=== PATIENT | male | born 1970 | race Caucasian/White ===

== ENCOUNTER 2016-12-28 04:22 | Inpatient (IN) | payer SELFPAY ==
[2016-12-28] VITALS (19 sets, daily range): BP systolic 116–154; BP diastolic 59–83; PULSE 56–99; RESP 16–31; TEMP 98.1–98.7; O2SAT 95–100
[~2016-12-28] VITALS: Ht 185.4 cm; Wt 77.1 kg
[2016-12-28] MEDS ORDERED: ALBU1.25 NEB (04:26)
[2016-12-28] MEDS ORDERED: VENTAER INH (04:26)
[2016-12-28] MEDS ORDERED: SODIUM CHLORIDE 0.9% FLUSH 10 ML FLUSH IVF PRN (04:45)
[2016-12-28 04:46] LABS: AUTOMATED NEUTROPHIL # 9.4 TH/MM3 (1.8-7.7); BASOPHIL # 0.1 TH/MM3 (0-0.2); BASOPHIL % 0.6 % (0.0-2.0); EOSINOPHIL # 1.5 TH/MM3 (0-0.4); EOSINOPHIL % 9.9 % (0.0-4.0); HEMATOCRIT 43.5 % (39.0-51.0); HEMO FLAGS DIFF FINAL; LYMPH % 18.8 % (9.0-44.0); LYMPHOCYTE # 2.8 TH/MM3 (1.0-4.8); MEAN CELL VOLUME 94.7 FL (80.0-100.0); MEAN CORPUSCULAR HEMOGLOBIN 31.5 PG (27.0-34.0); MEAN CORPUSCULAR HGB CONC 33.3 % (32.0-36.0); NEUT % 62.7 % (16.0-70.0); PLATELET COUNT 217 TH/MM3 (150-450); RED BLOOD COUNT 4.59 MIL/MM3 (4.50-5.90); RED CELL DISTRIBUTION WIDTH 12.9 % (11.6-17.2); WHITE BLOOD COUNT 15.1 TH/MM3 (4.0-11.0)
--- NOTE | 2016-12-28 04:46 | PD ---
HPI Chief Complaint: Respiratory Distress Time Seen by Provider: 04:32 Travel History International Travel<30 days: No Contact w/Intl Traveler<30days: No Traveled to known affect area: No History of Present Illness HPI 46-year-old male presents with one-week history of shortness of breath and wheezing. He received Solu-Medrol and 3 breathing treatments in route as well as BiPAP. He states that he's feeling much better with that treatment. He denies prior CPAP treatment before. He denies other concurrent complaints. History is limited through BiPAP mask PFSH Past Medical History Anxiety: Yes Diminished Hearing: Yes ([facility]) Musculoskeletal: Yes (CHRONIC NECK AND BACK PAIN) ?: Not Past Surgical History Tonsillectomy: Yes Social History Alcohol Use: Yes () Tobacco Use: Yes (STAT[employer] HE QUIT ON WEDNESDAY ) Substance Use: No Allergies-Medications (Allergen,Severity, Reaction): Coded Allergies: Tramadol (Unverified Adverse Reaction, Mild, NAUSEA, CRAMPS, 12/28/16) Reported Meds & Prescriptions Reported Meds & Active Scripts Active Reported Ventolin Hfa 18 GM Inh (Albuterol Sulfate) 90 Mcg/Act Aer 2 Puff INH Q4-6H PRN Albuterol Neb (Albuterol Sulfate) 1.25 Mg/3 Ml Neb 1.25 Mg NEB Q6HR NEB PRN Review of Systems ROS Limitations: Other: (BiPAP) Except as stated in HPI: all other systems reviewed are Neg Physical Exam Exam Limitations: Other: (BiPAP) Narrative GENERAL: Well-nourished, well-developed patient. SKIN: Warm and dry. HEAD: Normocephalic and atraumatic. EYES: No injection or drainage. ENT: No nasal drainage noted. NECK: Supple, trachea midline. CARDIOVASCULAR: Regular rate and rhythm RESPIRATORY: Expiratory wheezing bilaterally. No accessory muscle use. EXTREMITIES: No edema. NEUROLOGICAL: Awake and alert. Moves all extremities. Normal speech. Data Data Last Documented VS Vital Signs Date Time Temp Pulse Resp B/P Pulse Ox O2 Delivery O2 Flow Rate FiO2 12/28/16 05:16 56 26 126/60 100 BiPAP 12/28/16 04:56 35 12/28/16 04:26 98.2 Orders Complete Blood Count With Diff (12/28/16 04:32) Comprehensive Metabolic Panel (12/28/16 04:32) B-Type Natriuretic Peptide (12/28/16 04:32) Act Partial Throm Time (Ptt) (12/28/16 04:32) Prothrombin Time / Inr (Pt) (12/28/16 04:32) Magnesium (Mg) (12/28/16 04:32) Ckmb (Isoenzyme) Profile (12/28/16 04:32) Troponin I (12/28/16 04:32) Influenzae A/B Antigen (12/28/16 04:32) Iv Access Insert/Monitor (12/28/16 04:32) Electrocardiogram (12/28/16 04:32) Ecg Monitoring (12/28/16 04:32) Oximetry (12/28/16 04:32) Oxygen Administration (12/28/16 04:32) Chest, Single Ap (12/28/16 04:32) Sodium Chloride 0.9% Flush (Ns Flush) (12/28/16 04:45) Albuterol-Ipratropium Neb (Duoneb Neb) (12/28/16 04:45) CKMB (12/28/16 04:40) CKMB% (12/28/16 04:40) Arterial Blood Gas (Abg) (12/28/16 ) Admit Order (Ed Use Only) (12/28/16 05:38) Labs Laboratory Tests Test 12/28/16 12/28/16 04:40 05:18 White Blood Count 15.1 TH/MM3 Red Blood Count 4.59 MIL/MM3 Hemoglobin 14.5 GM/DL Hematocrit 43.5 % Mean Corpuscular Volume 94.7 FL Mean Corpuscular Hemoglobin 31.5 PG Mean Corpuscular Hemoglobin 33.3 % Concent Red Cell Distribution Width 12.9 % Platelet Count 217 TH/MM3 Mean Platelet Volume 7.3 FL Neutrophils (%) (Auto) 62.7 % Lymphocytes (%) (Auto) 18.8 % Monocytes (%) (Auto) 8.0 % Eosinophils (%) (Auto) 9.9 % Basophils (%) (Auto) 0.6 % Neutrophils # (Auto) 9.4 TH/MM3 Lymphocytes # (Auto) 2.8 TH/MM3 Monocytes # (Auto) 1.2 TH/MM3 Eosinophils # (Auto) 1.5 TH/MM3 Basophils # (Auto) 0.1 TH/MM3 CBC Comment DIFF FINAL Differential Comment Prothrombin Time 10.4 SEC Prothromb Time International 0.9 RATIO Ratio Activated Partial 25.0 SEC Thromboplast Time Sodium Level 140 MEQ/L Potassium Level 3.7 MEQ/L Chloride Level 100 MEQ/L Carbon Dioxide Level 35.5 MEQ/L Anion Gap 5 MEQ/L Blood Urea Nitrogen 9 MG/DL Creatinine 0.75 MG/DL Estimat Glomerular Filtration 112 ML/MIN Rate Random Glucose 134 MG/DL Calcium Level 8.7 MG/DL Magnesium Level 2.0 MG/DL Total Bilirubin 0.4 MG/DL Aspartate Amino Transf 83 U/L (AST/SGOT) Alanine Aminotransferase 66 U/L (ALT/SGPT) Alkaline Phosphatase 142 U/L Total Creatine Kinase 277 U/L Creatine Kinase MB 8.8 NG/ML Troponin I 0.07 NG/ML B-Type Natriuretic Peptide 119 PG/ML Total Protein 7.5 GM/DL Albumin 3.5 GM/DL Blood Gas Puncture Site RT RADIAL Blood Gas Patient Temperature 98.6 Blood Gas HCO3 30 mmol/L Blood Gas Base Excess 4.5 mmol/L Blood Gas Oxygen Saturation 97 % Arterial Blood pH 7.35 Arterial Blood Partial 56 mmHg Pressure CO2 Arterial Blood Partial 104 mmHG Pressure O2 Arterial Blood Oxygen Content 19.2 Vol % Arterial Blood 1.1 % Carboxyhemoglobin Arterial Blood Methemoglobin 0.4 % Blood Gas Hemoglobin 14.0 G/DL Oxygen Delivery Device Y Blood Gas Ventilator Setting BIPAP/IPAP15/EPAP5 Blood Gas Inspired Oxygen 35 % MDM Medical Decision Making Medical Screen Exam Complete: Yes Emergency Medical Condition: Yes Medical Record Reviewed: Yes (past history confirmed) Interpretation(s) EKG is sinus rhythm without STEMI criteria CBC & BMP Diagram 12/28/16 04:40 cxr no acute ABG shows elevated PCO2 of 55 with elevated bicarbonate of 29 to compensate with pH of 7.35 without prior for comparison Differential Diagnosis COPD exacerbation, pneumonia, pneumothorax, anemia, renal failure, URI Narrative Course Will check blood work, chest x-ray, influenza and dose with DuoNeb's and reeval ed workup with copd exacerbation, abg stable on current bipap settings, will admit for further care Critical Care Narrative Aggregate critical care time was 31 minutes. Time to perform other separately billable procedures was not included in the critical care time. My time did not include minutes spent treating any other patients simultaneously or on activities that did not directly contribute to the patient's treatment. The services I provided to this patient were to treat and/or prevent clinically significant deterioration that could result in: Respiratory failure I provided critical care services requiring my management, as noted below: Chart data review, documentation time, medication orders and management, vital sign assessments/reviewing monitor data, ordering and reviewing lab tests, ordering and interpreting/reviewing x-rays and diagnostic studies, care of the patient and discussion of the patient with the admitting physicians. Physician Communication Physician Communication dr og requests full admit Diagnosis Primary Impression: COPD exacerbation Admitting Information Admitting Physician Requests: Admit Courtney Toledo MD December 28, 2016 04:46 Courtney Toledo MD December 28, 2016 04:46
[2016-12-28] MEDS: RESP: ALBUTEROL 2.5 MG/IPRATROPIUM 0.5 MG NEB (SCH) INH (04:47)
[2016-12-28 04:57] LABS: INTERNATIONAL NORMALIZED RATIO 0.9 RATIO; PROTHROMBIN TIME - PATIENT 10.4 SEC (9.8-11.6)
[2016-12-28 05:06] LABS: ANION GAP 5 MEQ/L (5-15); BICARBONATE 35.5 MEQ/L (21.0-32.0); BLOOD UREA NITROGEN 9 MG/DL (7-18); CHLORIDE 100 MEQ/L (98-107); GLOMERULAR FILTRATION RATE 112 ML/MIN (>89); POTASSIUM 3.7 MEQ/L (3.5-5.1); SODIUM (NA) 140 MEQ/L (136-145)
[2016-12-28 05:11] LABS: ALKALINE PHOSPHATASE 142 U/L (45-117); ALT (GPT) 66 U/L (12-78); AST (GOT) 83 U/L (15-37); CREATINE KINASE 277 U/L (39-308); TOTAL BILIRUBIN ADULT 0.4 MG/DL (0.2-1.0)
[2016-12-28 05:25] LABS: CKMB 8.8 NG/ML (0.5-3.6)
[2016-12-28 05:28] LABS: BLOOD GAS BASE EXCESS 4.5 mmol/L (-2-2); BLOOD GAS CARBOXYHEMOGLOBIN 1.1 % (0-4); BLOOD GAS HCO3 30 mmol/L (22-26); BLOOD GAS METHEMOGLOBIN 0.4 % (0-2); BLOOD GAS O2 HGB SATURATION 97 % (90-100); BLOOD GAS OXYGEN CONTENT 19.2 Vol % (12.0-20.0); BLOOD GAS PCO2 56 mmHg (38-42); BLOOD GAS PO2 104 mmHG (61-120); TEMP CORR TO 98.6
[2016-12-28 05:29] LABS: CRITICAL VALUE YES; OXYGEN DEVICE Y; VENT SETTINGS BIPAP/IPAP15/EPAP5
[2016-12-28 05:30] LABS: DRAW SITE RT RADIAL; FIO2 35 %; NUMBER OF ARTERIAL PUNCTURES 1; STAT YES; ULNAR PULSE PRESENT
[2016-12-28] MEDS ORDERED: ACETAMINOPHEN 325 MG TAB PO PRN (05:45)
[2016-12-28] MEDS ORDERED: ONDANSETRON HCL 4 MG/2 ML VIAL IVP PRN (05:45)
[2016-12-28] MEDS ORDERED: BISACODYL 10 MG SUPP RECTAL PRN (05:45)
--- NOTE | 2016-12-28 05:48 | RADRPT ---
EXAM DATE/TIME: 12/28/2016 04:56 [place] COMPARISON: CHEST SINGLE AP, May 01, 2014, 20:00. INDICATIONS : Short of breath MEDICAL HISTORY : None. SURGICAL HISTORY : None. ENCOUNTER: Initial ACUITY: 1 day PAIN SCORE: 0/10 LOCATION: Bilateral chest FINDINGS: The lungs are clear without infiltrate, nodule, or mass. There is no appreciable pleural effusion fo r technique. Heart and mediastinum are unremarkable. CONCLUSION: No acute cardiopulmonary disease. Fabricio May MD on December 28, 2016 at 5:47 Board Certified Radiologist. This report was verified electronically.
[2016-12-28] MEDS: LEVOFLOXACIN 750 MG PREMIX INJ 150 ML IV SCH (06:34)
[2016-12-28] MEDS: methylPREDNISolone SOD SUCC 40 MG/1 ML VIAL IV PUSH SCH ×4 (06:34→22:40)
[2016-12-28] MEDS: RESP: ALBUTEROL 2.5 MG/IPRATROPIUM 0.5 MG NEB (SCH) NEB ×4 (07:26→19:59)
--- NOTE | 2016-12-28 08:14 | HHI.HP ---
[facility] Service [facility] Primary Care Physician Unknown Admission Diagnosis copd exacerbation Diagnoses: (1) COPD exacerbation (2) Acute respiratory failure (3) Leukocytosis (4) Elevated troponin I level (5) Sepsis Chief Complaint: Difficulty breathing; wheezing Travel History International Travel<30 Days: No Contact w/Intl Traveler <30 Da: No Traveled to Known Affected Are: No Sepsis Criteria SIRS Criteria (2 or more): RR > 20 or PaCO2 < 32, WBC > 56415, < 4000 or > 10 % bands Sepsis Criteria (SIRS+source): Infect source susp/known Criteria Outcome: Meets sepsis criteria History of Present Illness The patient is a 46-year-old male who presented to the ER complaining of worsening shortness of breath and wheezing. He states that his symptoms have worsened significantly over the past week. He received Solu-Medrol and 3 nebulizer treatments in route to the hospital. He was also placed on BiPAP. He is feeling better after receiving those treatments, but still feels short of breath and still has significant wheezing. He denies chest pain. Does report headache. No nausea, vomiting, diarrhea, constipation. Review of Systems Constitutional: DENIES: Fever, Chills, Night Sweats Eyes: DENIES: Blurred vision, Vision loss Ears, nose, mouth, throat: DENIES: Hearing loss Respiratory: COMPLAINS OF: Cough, Wheezing, Shortness of breath, DENIES: Sputum production Cardiovascular: COMPLAINS OF: Dyspnea on Exertion, DENIES: Chest pain, Palpitations, Lower Extremity Edema Gastrointestinal: DENIES: Abdominal pain, Constipation, Diarrhea, Nausea, Vomiting Genitourinary: DENIES: Urinary frequency, Urinary incontinence, Urgency, Hematuria, Dysuria, Nocturia Musculoskeletal: DENIES: Joint pain, Muscle aches Integumentary: DENIES: Pruritus, Rash Hematologic/lymphatic: DENIES: Bruising Neurologic: COMPLAINS OF: Headache Past Family Social History Past Medical History COPD Anxiety Past Surgical History Tonsillectomy Reported Medications Ventolin Hfa 18 GM Inh (Albuterol Sulfate) 90 Mcg/Act Aer 2 Puff INH Q4-6H PRN Albuterol Neb (Albuterol Sulfate) 1.25 Mg/3 Ml Neb 1.25 Mg NEB Q6HR NEB PRN Allergies: Coded Allergies: Tramadol (Unverified Adverse Reaction, Mild, NAUSEA, CRAMPS, 12/28/16) Family History Heart disease Social History The patient states that he quit smoking 10 days ago. He had smoked 1.5 packs per day for "many years". Reports occasional alcohol use. Denies illicit drug use. Physical Exam Vital Signs Vital Signs Date Time Temp Pulse Resp B/P Pulse Ox O2 Delivery O2 Flow Rate FiO2 12/28/16 07:47 60 16 116/62 100 BiPAP 5 40 12/28/16 07:26 100 35 12/28/16 05:16 56 26 126/60 100 BiPAP 12/28/16 04:56 100 High Flow Nasal Cannula 35 12/28/16 04:33 100 BiPAP 12/28/16 04:30 30 100 BiPAP 12/28/16 04:26 98.2 86 30 141/83 100 12/28/16 04:18 100 35 Physical Exam GENERAL: Well-nourished, well-developed male in no acute distress. On BiPAP. HEENT: Normocephalic, atraumatic. Pupils equal, round and reactive. Extraocular movements intact. No scleral icterus. No injection or drainage. Oropharynx is clear. Mucous membranes are moist. CARDIOVASCULAR: Regular rate and rhythm without murmurs, gallops, or rubs. RESPIRATORY: Diffuse wheeze. GASTROINTESTINAL: Abdomen soft, non-tender, nondistended. EXTREMITIES: No lower extremity edema. No calf tenderness. PSYCH: Alert and oriented x 3. Laboratory Laboratory Tests Test 12/28/16 12/28/16 04:40 05:18 White Blood Count 15.1 Red Blood Count 4.59 Hemoglobin 14.5 Hematocrit 43.5 Mean Corpuscular Volume 94.7 Mean Corpuscular Hemoglobin 31.5 Mean Corpuscular Hemoglobin 33.3 Concent Red Cell Distribution Width 12.9 Platelet Count 217 Mean Platelet Volume 7.3 Neutrophils (%) (Auto) 62.7 Lymphocytes (%) (Auto) 18.8 Monocytes (%) (Auto) 8.0 Eosinophils (%) (Auto) 9.9 Basophils (%) (Auto) 0.6 Neutrophils # (Auto) 9.4 Lymphocytes # (Auto) 2.8 Monocytes # (Auto) 1.2 Eosinophils # (Auto) 1.5 Basophils # (Auto) 0.1 CBC Comment DIFF FINAL Differential Comment Prothrombin Time 10.4 Prothromb Time International 0.9 Ratio Activated Partial 25.0 Thromboplast Time Sodium Level 140 Potassium Level 3.7 Chloride Level 100 Carbon Dioxide Level 35.5 Anion Gap 5 Blood Urea Nitrogen 9 Creatinine 0.75 Estimat Glomerular Filtration 112 Rate Random Glucose 134 Calcium Level 8.7 Magnesium Level 2.0 Total Bilirubin 0.4 Aspartate Amino Transf 83 (AST/SGOT) Alanine Aminotransferase 66 (ALT/SGPT) Alkaline Phosphatase 142 Total Creatine Kinase 277 Creatine Kinase MB 8.8 Troponin I 0.07 B-Type Natriuretic Peptide 119 Total Protein 7.5 Albumin 3.5 Blood Gas Puncture Site RT RADIAL Blood Gas Patient Temperature 98.6 Blood Gas HCO3 30 Blood Gas Base Excess 4.5 Blood Gas Oxygen Saturation 97 Arterial Blood pH 7.35 Arterial Blood Partial 56 Pressure CO2 Arterial Blood Partial 104 Pressure O2 Arterial Blood Oxygen Content 19.2 Arterial Blood 1.1 Carboxyhemoglobin Arterial Blood Methemoglobin 0.4 Blood Gas Hemoglobin 14.0 Oxygen Delivery Device Y Blood Gas Ventilator Setting BIPAP/IPAP15/EPAP5 Blood Gas Inspired Oxygen 35 Date/Time Procedure Status Source Growth 12/28/16 00:40 Influenza Types A,B Antigen (KRISTEN) - Final Complete Nasal Aspirate NEGATIVE FOR FLU A AND B ANTIGEN.... Result Diagram: 12/28/16 0440 12/28/16 044 Imaging Last Impressions Chest X-Ray 12/28/16 0432 Signed Impressions: Service Date/Time: Wednesday, December 28, 2016 04:56 - CONCLUSION: No acute cardiopulmonary disease. Fabricio May MD Assessment and Plan Assessment and Plan 1. COPD exacerbation: Continue steroids, bronchodilators, supplemental oxygen, antibiotics. 2. Acute respiratory failure secondary to above: Requiring BiPAP. Consult pulmonology. 3. DVT prophylaxis: Heparin. Code Status Full code Rosas Wheeler MD December 28, 2016 08:14
[2016-12-28] MEDS ORDERED: CHLORHEXIDINE GLUCONATE 2 % 1 PACK (2 CLOTHS)(extra cloths) TOPICAL PRN (09:30)
[2016-12-28] MEDS: BUDESONIDE-FORMOTEROL 160/4.5 MCG INHALER INH SCH ×2 (09:39→21:04)
[2016-12-28] MEDS: SODIUM CHLORIDE 0.9% FLUSH 10 ML FLUSH IV FLUSH PRN (09:39)
[2016-12-28] MEDS: guaiFENesin E.R. 600 MG TAB PO SCH ×2 (09:39→21:04)
[2016-12-28] MEDS: SODIUM CHLORIDE 0.9% FLUSH 10 ML FLUSH IV FLUSH SCH ×2 (09:39→21:04)
[2016-12-28 13:36] LABS: CREATINE KINASE 215 U/L (39-308)
[2016-12-28 13:48] LABS: CKMB 7.3 NG/ML (0.5-3.6)
[2016-12-28] MEDS: ASPIRIN EC 325 MG TABEC PO SCH (14:00)
[2016-12-28] MEDS ORDERED: NITROGLYCERIN 0.4 MG SL 25 TABS/BTL SL PRN (14:00)
[2016-12-28] MEDS: HEPARIN SODIUM - SQ 10,000 UNITS/ML VIAL SQ SCH ×2 (14:00→21:04)
--- NOTE | 2016-12-28 14:55 | PD.CONS ---
HPI Service cardiology Consult Requested By Reason for Consult elevated troponin Primary Care Physician Unknown History of Present Illness 46 yo WM with no prior cardiac history admitted for COPD exacerbation. Patient states he quit smoking approx 10 days ago and began to have a dry, hacky cough that has progressively worsened. This morning he became acutely short of breath and came to ED and required bipap. troponin and CK-MB elevated. ECG sinus rhythm , CXR clear. He continues to have persistent dry cough and is on venturi mask. He denies chest pain. (Jasmyne Hidalgo) Review of Systems Consitutional: DENIES: Fatigue, Fever, Chills, Weight gain, Weight loss Respiratory: COMPLAINS OF: See HPI Cardiovascular: DENIES: Chest pain, Palpitations, Syncope, Tachycardia Gastrointestinal: DENIES: Nausea, Vomiting, Change in bowel habits, Reflux, Bloody stools, Melena (Jasmyne Hidalgo) Past Family Social History Allergies: Coded Allergies: Tramadol (Unverified Adverse Reaction, Mild, NAUSEA, CRAMPS, 12/28/16) Past Medical History Past Medical History COPD Anxiety Past Surgical History Past Surgical History Tonsillectomy Reported Medications Reported Meds & Active Scripts Active Reported Ventolin Hfa 18 GM Inh (Albuterol Sulfate) 90 Mcg/Act Aer 2 Puff INH Q4-6H PRN Albuterol Neb (Albuterol Sulfate) 1.25 Mg/3 Ml Neb 1.25 Mg NEB Q6HR NEB PRN Active Ordered Medications Current Medications Medications (Trade) Dose Ordered Sig/Codey Route Start Time Stop Time Status Last Admin (NS Flush) 2 ml UNSCH PRN IVF 12/28/16 04:45 12/28/16 09:39 (SoluMEDROL INJ) 40 mg Q6HR IV PUSH 12/28/16 06:00 12/28/16 11:42 (Mucinex Er) 600 mg BID PO 12/28/16 09:00 12/28/16 09:39 Budesonide/ Formoterol Fumarate 2 puff 2 puff Q12HR INH 12/28/16 09:00 12/28/16 09:39 (Levaquin 750 Mg Premix Inj) 150 ml @ 100 mls/hr Q24H IV 12/28/16 06:00 12/28/16 06:34 (NS Flush) 2 ml UNSCH PRN IV FLUSH 12/28/16 05:45 12/28/16 09:39 (NS Flush) 2 ml BID IV FLUSH 12/28/16 09:00 12/28/16 09:39 (Zofran Inj) 4 mg Q6H PRN IVP 12/28/16 05:45 (Dulcolax Supp) 10 mg DAILY PRN RECTAL 12/28/16 05:45 (Tylenol) 650 mg Q6H PRN PO 12/28/16 05:45 (Rulo 5-325 Mg) 1 tab Q4H PRN PO 12/28/16 05:45 (Rulo 10-325 Mg) 1 tab Q4H PRN PO 12/28/16 05:45 (Heparin Inj) 5,000 units Q8HR SQ 12/28/16 14:00 12/28/16 14:00 Miscellaneous Information Patient in critical care unit? Ass... Q361D .XX 12/28/16 09:30 12/28/16 09:30 (Chlorhexidine 2% Cloth) 3 pack DAILY@04 TOPICAL 12/29/16 04:00 01/02/17 04:01 (Chlorhexidine 2% Cloth) 3 pack UNSCH PRN TOPICAL 12/28/16 09:30 01/02/17 09:24 (Pneumovax-23 Inj) 25 mcg ONCE ONCE IM 12/29/16 10:00 12/29/16 10:01 (Ecotrin Ec) 325 mg DAILY PO 12/28/16 14:00 (Nitrostat Sl) 0.4 mg Q5M PRN SL 12/28/16 14:00 Family History Family History Heart disease . Social History The patient states that he quit smoking 10 days ago. He had smoked 1.5 packs per day for "many years". Reports occasional alcohol use. Denies illicit drug use. (Jasmyne Hidalgo) Physical Exam Vital Signs Vital Signs Date Time Temp Pulse Resp B/P Pulse Ox O2 Delivery O2 Flow Rate FiO2 12/28/16 10:00 99 12/28/16 09:17 97 Venturi Mask 50 12/28/16 07:47 60 16 116/62 100 BiPAP 5 40 12/28/16 07:26 100 35 12/28/16 05:16 56 26 126/60 100 BiPAP 12/28/16 04:56 100 High Flow Nasal Cannula 35 12/28/16 04:33 100 BiPAP 12/28/16 04:30 30 100 BiPAP 12/28/16 04:26 98.2 86 30 141/83 100 12/28/16 04:18 100 35 Physical Exam GENERAL: SKIN: Warm and dry. HEAD: Atraumatic. Normocephalic. EYES: Pupils equal and round. ENT: No nasal bleeding or discharge. Mucous membranes pink and moist. NECK: Trachea midline. No JVD. CARDIOVASCULAR: Regular rate and rhythm. No murmurs. RESPIRATORY: +bilateral expiratory wheezes GASTROINTESTINAL: Abdomen soft, non-tender, nondistended. MUSCULOSKELETAL: Extremities without clubbing, cyanosis, or edema. No obvious deformities. NEUROLOGICAL: Awake and alert. No obvious cranial nerve deficits. Normal speech. PSYCHIATRIC: Appropriate mood and affect; insight and judgment normal. Laboratory Laboratory Tests Test 12/28/16 12/28/16 12/28/16 12/28/16 04:40 05:18 09:15 12:20 White Blood Count 15.1 Red Blood Count 4.59 Hemoglobin 14.5 Hematocrit 43.5 Mean Corpuscular Volume 94.7 Mean Corpuscular Hemoglobin 31.5 Mean Corpuscular Hemoglobin 33.3 Concent Red Cell Distribution Width 12.9 Platelet Count 217 Mean Platelet Volume 7.3 Neutrophils (%) (Auto) 62.7 Lymphocytes (%) (Auto) 18.8 Monocytes (%) (Auto) 8.0 Eosinophils (%) (Auto) 9.9 Basophils (%) (Auto) 0.6 Neutrophils # (Auto) 9.4 Lymphocytes # (Auto) 2.8 Monocytes # (Auto) 1.2 Eosinophils # (Auto) 1.5 Basophils # (Auto) 0.1 CBC Comment DIFF FINAL Differential Comment Prothrombin Time 10.4 Prothromb Time International 0.9 Ratio Activated Partial 25.0 Thromboplast Time Sodium Level 140 Potassium Level 3.7 Chloride Level 100 Carbon Dioxide Level 35.5 Anion Gap 5 Blood Urea Nitrogen 9 Creatinine 0.75 Estimat Glomerular Filtration 112 Rate Random Glucose 134 Calcium Level 8.7 Magnesium Level 2.0 Total Bilirubin 0.4 Aspartate Amino Transf 83 (AST/SGOT) Alanine Aminotransferase 66 (ALT/SGPT) Alkaline Phosphatase 142 Total Creatine Kinase 277 215 Creatine Kinase MB 8.8 7.3 Troponin I 0.07 0.16 B-Type Natriuretic Peptide 119 Total Protein 7.5 Albumin 3.5 Blood Gas Puncture Site RT RADIAL Blood Gas Patient Temperature 98.6 Blood Gas HCO3 30 Blood Gas Base Excess 4.5 Blood Gas Oxygen Saturation 97 Arterial Blood pH 7.35 Arterial Blood Partial 56 Pressure CO2 Arterial Blood Partial 104 Pressure O2 Arterial Blood Oxygen Content 19.2 Arterial Blood 1.1 Carboxyhemoglobin Arterial Blood Methemoglobin 0.4 Blood Gas Hemoglobin 14.0 Oxygen Delivery Device Y Blood Gas Ventilator Setting BIPAP/IPAP15/EPAP5 Blood Gas Inspired Oxygen 35 Nasal Screen MRSA (PCR) MRSA NOT DETECTED Date/Time Procedure Status Source Growth 12/28/16 00:40 Influenza Types A,B Antigen (KRISTEN) - Final Complete Nasal Aspirate NEGATIVE FOR FLU A AND B ANTIGEN.... (Jasmyne Hidalgo) Result Diagram: 12/28/1643912/28/16439 Imaging Last Impressions Chest X-Ray 12/28/16 0432 Signed Impressions: Service Date/Time: Wednesday, December 28, 2016 04:56 - CONCLUSION: No acute cardiopulmonary disease. Fabricio May MD (Jasmyne Hidalgo) Assessment and Plan Problem List: (1) Elevated troponin I level (2) COPD exacerbation Assessment and Plan 46 yo WM with no prior cardiac history presents to ED today with progressive SOB x 2 weeks. Required bipap. Found to have troponin elevation. Troponin elevation- will obtain lexiscan to evaluate for ischemia. (Jasmyne Hidalgo) Assessment and Plan elevated troponin is likely demand mediated. plan for lexiscan in am to rule out ischemic etiology (Jeremie Roque MD) Jasmyne Hidalgo December 28, 2016 14:55 Jeremie Roque MD December 28, 2016 15:39
[2016-12-28] MEDS: BENZONATATE 100 MG CAP PO PRN ×2 (14:58→22:40)
[2016-12-28] MEDS: ACETAMINOPHEN/HYDROcodone 325 MG/5 MG TAB PO PRN (15:02)
[2016-12-28] MEDS: ACETAMINOPHEN/HYDROcodone 325 MG/10 MG TAB PO PRN ×2 (17:23→22:40)
[2016-12-28 21:15] LABS: CREATINE KINASE 197 U/L (39-308)
[2016-12-28 21:31] LABS: CKMB 6.2 NG/ML (0.5-3.6)
--- NOTE | 2016-12-28 21:36 | MB ---
cc: AMY REYES M.D. DATE OF CONSULTATION 12/28/2016 REASON FOR CONSULTATION COPD exacerbation. HISTORY OF PRESENT ILLNESS Mr. Adamson is a 46-year-old male, long-standing smoking history on bronchodilator therapy at home, complaining of increasing shortness of breath. His wheeze is progressively worse, comes to the emergency room with exacerbation of COPD and acute respiratory failure. Initially placed on BiPap therapy somewhat improved. At present on oxygen by nasal cannula, however, he remains with congestion, cough and chest wheeze. PAST MEDICAL HISTORY 1. COPD. 2. Anxiety. SOCIAL HISTORY Long heavy smoking history. Has not smoked for about 10 days. 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 Drinks alcohol socially. Does not use drugs. MEDICATIONS AT HOME Albuterol by nebulizer inhaler. ALLERGIES TRAMADOL. FAMILY HISTORY Noncontributory. REVIEW OF SYSTEMS 12-point review of systems as per HPI and past history otherwise negative. PHYSICAL EXAMINATION VITAL SIGNS: On exam temperature 98, pulse 80, respiration 30, blood pressure 140/80. HEENT: Exam unremarkable. Eyes without icterus. NECK: Without adenopathy or thyroid enlargement. Central trachea. CHEST: Scattered rhonchi, wheeze bilaterally. CARDIOVASCULAR: PMI distant. S1-S2 audible. No murmur. No rub. ABDOMEN: Lax. Audible bowel sounds. EXTREMITIES: No clubbing, cyanosis or edema. LABORATORY DATA White count 15,000, hemoglobin 14, hematocrit 43, platelets are 217,000. Sodium 140, potassium 3.7, BUN 9, creatinine 0.7. IMAGING Chest x-ray no acute disease. IMPRESSION 1. COPD exacerbation. 2. Hypoxic respiratory failure. PLAN Continue oxygen therapy and bronchodilator therapy. Change to oral therapy when possible. We will be happy to follow his care with you. Amy Reyes MD WWW/JAMIE /5:17 PM /9:29 PM
[2016-12-28] MEDS: RESP: ALBUTEROL 2.5 MG/IPRATROPIUM 0.5 MG NEB (PRN) NEB (23:44)
[2016-12-29] VITALS (17 sets, daily range): BP systolic 89–138; BP diastolic 45–65; PULSE 50–90; RESP 13–23; TEMP 98.1–98.5; O2SAT 92–100
[2016-12-29] MEDS ORDERED: MELATONIN 5 MG TAB PO ONE (00:30)
[2016-12-29] MEDS: RESP: ALBUTEROL 2.5 MG/IPRATROPIUM 0.5 MG NEB (PRN) NEB (03:02)
[2016-12-29] MEDS: CHLORHEXIDINE GLUCONATE 2 % 1 PACK (2 CLOTHS)(taper/protocol) TOPICAL SCH (04:00)
[2016-12-29 04:36] LABS: AUTOMATED NEUTROPHIL # 13.8 TH/MM3 (1.8-7.7); HEMATOCRIT 39.8 % (39.0-51.0); HEMO FLAGS DIFF FINAL; LYMPH % 3.8 % (9.0-44.0); LYMPHOCYTE # 0.6 TH/MM3 (1.0-4.8); MEAN CELL VOLUME 94.1 FL (80.0-100.0); MEAN CORPUSCULAR HEMOGLOBIN 31.1 PG (27.0-34.0); MEAN CORPUSCULAR HGB CONC 33.1 % (32.0-36.0); MONO % 4.3 % (0.0-8.0); NEUT % 91.9 % (16.0-70.0); PLATELET COUNT 185 TH/MM3 (150-450); RED BLOOD COUNT 4.23 MIL/MM3 (4.50-5.90); RED CELL DISTRIBUTION WIDTH 13.1 % (11.6-17.2)
[2016-12-29 04:58] LABS: ALKALINE PHOSPHATASE 115 U/L (45-117); ALT (GPT) 46 U/L (12-78); ANION GAP 6 MEQ/L (5-15); AST (GOT) 26 U/L (15-37); BICARBONATE 32.3 MEQ/L (21.0-32.0); BLOOD UREA NITROGEN 16 MG/DL (7-18); CHLORIDE 100 MEQ/L (98-107); GLOMERULAR FILTRATION RATE 132 ML/MIN (>89); SODIUM (NA) 138 MEQ/L (136-145); TOTAL BILIRUBIN ADULT 0.3 MG/DL (0.2-1.0)
[2016-12-29] MEDS: LEVOFLOXACIN 750 MG PREMIX INJ 150 ML IV SCH (06:09)
[2016-12-29] MEDS: methylPREDNISolone SOD SUCC 40 MG/1 ML VIAL IV PUSH SCH ×4 (06:10→23:44)
[2016-12-29] MEDS: HEPARIN SODIUM - SQ 10,000 UNITS/ML VIAL SQ SCH ×3 (06:10→21:52)
[2016-12-29] MEDS: BENZONATATE 100 MG CAP PO PRN ×3 (06:17→17:19)
[2016-12-29] MEDS: RESP: ALBUTEROL 2.5 MG/IPRATROPIUM 0.5 MG NEB (SCH) NEB ×4 (06:33→20:11)
[2016-12-29] MEDS: guaiFENesin E.R. 600 MG TAB PO SCH ×2 (07:21→20:02)
[2016-12-29] MEDS: BUDESONIDE-FORMOTEROL 160/4.5 MCG INHALER INH SCH ×2 (07:22→20:02)
[2016-12-29] MEDS: ACETAMINOPHEN/HYDROcodone 325 MG/10 MG TAB PO PRN ×3 (07:22→23:45)
[2016-12-29] MEDS: SODIUM CHLORIDE 0.9% FLUSH 10 ML FLUSH IV FLUSH SCH ×2 (07:22→20:03)
[2016-12-29] MEDS: SODIUM CHLORIDE 0.9% FLUSH 10 ML FLUSH IV FLUSH PRN (07:22)
[2016-12-29] MEDS: ASPIRIN EC 325 MG TABEC PO SCH (07:22)
--- NOTE | 2016-12-29 08:54 | HHI.PR ---
Subjective Remarks Follow up COPD exacerbation, elevated troponin. Patient still with cough, wheeze. He feels better than yesterday. No chest pain. Reports headache that radiates from the back of his neck to the top of his head. Has been present for 1 week and he states that it is improving. He thinks it is from coughing. Objective Vitals Vital Signs Date Time Temp Pulse Resp B/P Pulse Ox O2 Delivery O2 Flow Rate FiO2 12/29/16 06:00 78 12/29/16 04:00 50 12/29/16 04:00 98.5 50 14 103/58 94 12/29/16 02:00 59 12/29/16 00:00 98.3 71 16 136/60 92 12/29/16 00:00 71 12/28/16 22:00 68 12/28/16 21:00 71 12/28/16 20:01 95 Nasal Cannula 3.50 12/28/16 20:00 98.1 79 31 122/59 96 12/28/16 20:00 79 12/28/16 18:00 80 12/28/16 16:00 81 12/28/16 16:00 98.7 81 17 138/69 97 12/28/16 15:00 90 27 154/74 96 12/28/16 14:00 86 26 138/79 98 12/28/16 14:00 86 12/28/16 13:00 72 20 127/59 97 12/28/16 12:00 73 12/28/16 12:00 98.2 73 16 142/63 97 12/28/16 11:00 80 16 128/67 95 12/28/16 10:00 99 12/28/16 09:17 97 Venturi Mask 50 I/O 12/28/16 12/28/16 12/28/16 12/29/16 12/29/16 12/29/16 07:00 15:00 23:00 07:00 15:00 23:00 Intake Total 800 ml 1820 ml 0 ml Output Total 300 ml 1300 ml 400 ml Balance 500 ml 520 ml -400 ml Intake Oral 800 ml 1320 ml 0 ml IV Total 0 ml 0 ml 0 ml Tube Feeding 500 ml Output Urine Total 300 ml 1300 ml 400 ml # Bowel Movements 0 0 0 Result Diagram: 12/29/16 0343 12/29/16 0343 Imaging Last Impressions Chest X-Ray 12/28/16 0432 Signed Impressions: Service Date/Time: Wednesday, December 28, 2016 04:56 - CONCLUSION: No acute cardiopulmonary disease. Fabricio May MD Objective Remarks General: No acute distress. Heart: Regular rate and rhythm. No murmur. Lungs: Diffuse wheeze. Breathing is nonlabored. Abdomen: Soft, nontender, nondistended. Extremities: No lower extremity edema. Psych: Alert and oriented. Procedures None Urinary Catheter: No Vascular Central Line Catheter: No A/P Problem List: (1) COPD exacerbation ICD Code: J44.1 Status: Acute (2) Acute respiratory failure ICD Code: J96.00 Status: Acute (3) Leukocytosis ICD Code: D72.829 Status: Acute (4) Elevated troponin I level ICD Code: R74.8 Status: Acute (5) Sepsis ICD Code: A41.9 Status: Acute Assessment and Plan 1. COPD exacerbation: Continue steroids, bronchodilators, supplemental oxygen, antibiotics. 2. Acute respiratory failure secondary to above: No longer requiring BiPAP. Appreciate pulmonology recommendations. 3. Elevated troponin: Appreciate cardiology recommendations. Nuclear stress test ordered for this morning. 4. DVT prophylaxis: Heparin. Discharge Planning Transfer to medical/surgical floor with telemetry. Rosas Wheeler MD December 29, 2016 08:54
--- NOTE | 2016-12-29 09:10 | HHI.PR ---
Subjective Remarks ALERT\ LESS SOB STILL WITH CONGESTION AND WHEEZING Objective Vital Signs Date Time Temp Pulse Resp B/P Pulse Ox O2 Delivery O2 Flow Rate FiO2 12/29/16 08:00 98.1 56 20 99/48 100 12/29/16 08:00 56 12/29/16 07:00 62 19 114/58 96 12/29/16 06:00 78 12/29/16 04:00 50 12/29/16 04:00 98.5 50 14 103/58 94 12/29/16 02:00 59 12/29/16 00:00 98.3 71 16 136/60 92 12/29/16 00:00 71 12/28/16 22:00 68 12/28/16 21:00 71 12/28/16 20:01 95 Nasal Cannula 3.50 12/28/16 20:00 98.1 79 31 122/59 96 12/28/16 20:00 79 12/28/16 18:00 80 12/28/16 16:00 81 12/28/16 16:00 98.7 81 17 138/69 97 12/28/16 15:00 90 27 154/74 96 12/28/16 14:00 86 26 138/79 98 12/28/16 14:00 86 12/28/16 13:00 72 20 127/59 97 12/28/16 12:00 73 12/28/16 12:00 98.2 73 16 142/63 97 12/28/16 11:00 80 16 128/67 95 12/28/16 10:00 99 12/28/16 09:17 97 Venturi Mask 50 I/O 12/28/16 12/28/16 12/28/16 12/29/16 12/29/16 12/29/16 07:00 15:00 23:00 07:00 15:00 23:00 Intake Total 800 ml 1820 ml 0 ml Output Total 300 ml 1300 ml 400 ml Balance 500 ml 520 ml -400 ml Intake Oral 800 ml 1320 ml 0 ml IV Total 0 ml 0 ml 0 ml Tube Feeding 500 ml Output Urine Total 300 ml 1300 ml 400 ml # Bowel Movements 0 0 0 Result Diagram: 12/29/16 0343 12/29/16 0343 Objective Remarks GENERAL: SKIN: Warm and dry. HEAD: Atraumatic. Normocephalic. EYES: Pupils equal and round. No scleral icterus. No injection or drainage. ENT: No nasal bleeding or discharge. Mucous membranes pink and moist. NECK: Trachea midline. No JVD. CARDIOVASCULAR: Regular rate and rhythm. RESPIRATORY: No accessory muscle use. BILATERAL WHEEZE to auscultation. Breath sounds equal bilaterally. GASTROINTESTINAL: Abdomen soft, non-tender, nondistended. Hepatic and splenic margins not palpable. MUSCULOSKELETAL: Extremities without clubbing, cyanosis, or edema. No obvious deformities. NEUROLOGICAL: Awake and alert. No obvious cranial nerve deficits. Motor grossly within normal limits. Five out of 5 muscle strength in the arms and legs. Normal speech. PSYCHIATRIC: Appropriate mood and affect; insight and judgment normal. Assessment and Plan Assessment and Plan COPD EXACERBATION PLAN O2 NEEDED ANTIBIOTICS BRONCHODILATOR THERAPY INCREASE ACTIVITY Amy Reyes MD December 29, 2016 09:10
[2016-12-29] MEDS ORDERED: INFLUENZA VIRUS VACCINE (QUADRIVALENT) 0.5 ML SYR IM ONE (10:00)
[2016-12-29] MEDS ORDERED: PNEUMOCOCCAL POLYVALENT INJ 25 MCG/0.5 ML SYR IM ONE (10:00)
[2016-12-29] MEDS ORDERED: REGADENOSON INJ 0.4 MG/5 ML SYR ONE (10:13)
--- NOTE | 2016-12-29 11:21 | RADRPT ---
EXAM DATE/TIME: 12/29/2016 09:42 [facility] COMPARISON: No previous studies available for comparison. INDICATIONS : Mid chest pain for one day. Congestive heart failure. DOSE: 26.1 mCi Tc99m Myoview at stress. 8.2 mCi Tc99m Myoview at rest. 0.4 mg Lexiscan STRESS SYMPTOMS: Shortness of breath. EJECTION FRACTION: 58% MEDICAL HISTORY : Chronic obstructive pulmonary disease. Smoking history. SURGICAL HISTORY : Foot surgery. ENCOUNTER: Initial ACUITY: 1 day PAIN SCALE: 3/10 LOCATION: Bilateral chest TECHNIQUE: The patient underwent pharmacologic stress with infusion of prescribed dose. Continuous ECG tracing was monitored during stress. Gated SPECT imaging was performed after stress and conventional SPECT i maging was performed at rest. The examination was performed on a SPECT/CT scanner, both attenuation and non-corrected datasets were reviewed. FINDINGS: DISTRIBUTION: The maximum perfused segment at stress is in the inferior wall. PERFUSION STUDY: The pattern of perfusion at stress is within normal limits. GATED STUDY: There is intact wall motion and thickening without hypokinetic or dyskinetic segments. CONCLUSION: 1. Unremarkable myocardial perfusion scan.8 RISK CATEGORY: Low risk, less than 1% annual mortality Dc Myers MD on December 29, 2016 at 11:12 Board Certified Radiologist. This report was verified electronically.
--- NOTE | 2016-12-29 11:52 | PD.CARD.PN ---
Subjective Subjective Remarks no events Objective Medications Active Medications Aspirin (Ecotrin Ec) 325 mg DAILY PO Last administered on 12/29/16 07:22; Admin Dose 325 MG; Start 12/28/16 at 14:00 Benzonatate (Tessalon) 100 mg TID PRN PO Last administered on 12/29/16 11:24; Admin Dose 100 MG; Start 12/28/16 at 14:45 Chlorhexidine Gluconate (Chlorhexidine 2% Cloth) 3 pack DAILY@04 TOPICAL Last administered on 12/29/16 04:00; Admin Dose 3 PACK; Start 12/29/16 at 04:00; Stop 01/02/17 at 04:01 Heparin Sodium (Porcine) (Heparin Inj) 5,000 units Q8HR SQ Last administered on 12/29/16 06:10; Admin Dose 5,000 UNITS; Start 12/28/16 at 14:00 Influenza Virus Vaccine (Flu (Quadrivalent) Vaccine Inj) 0.5 ml ONCE ONCE IM; Start 12/29/16 at 10:00; Stop 12/29/16 at 10:00; Status DC Melatonin (Melatonin) 5 mg ONCE ONCE PO Last administered on 12/29/16 00:43; Admin Dose 5 MG; Start 12/29/16 at 00:30; Stop 12/29/16 at 00:32; Status DC Nitroglycerin (Nitrostat Sl) 0.4 mg Q5M PRN SL; Start 12/28/16 at 14:00 Pneumococcal Polyvalent Vaccine (Pneumovax-23 Inj) 25 mcg ONCE ONCE IM Last administered on 12/29/16 08:59; Admin Dose 25 MCG; Start 12/29/16 at 10:00; Stop 12/29/16 at 10:01; Status DC Regadenoson (Lexiscan Inj) 0.4 mg STK-MED ONCE .ROUTE Last administered on 10:13; Admin Dose 0.4 MG; Start 12/29/16 at 10:13; Stop 12/29/16 at 10:14; Status DC Vital Signs / I&O Vital Signs Date Time Temp Pulse Resp B/P Pulse Ox O2 Delivery O2 Flow Rate FiO2 12/29/16 11:24 96 12/29/16 08:00 98.1 56 20 99/48 100 12/29/16 08:00 56 12/29/16 07:00 62 19 114/58 96 12/29/16 06:00 78 12/29/16 04:00 50 12/29/16 04:00 98.5 50 14 103/58 94 12/29/16 02:00 59 12/29/16 00:00 98.3 71 16 136/60 92 12/29/16 00:00 71 12/28/16 22:00 68 12/28/16 21:00 71 12/28/16 20:01 95 Nasal Cannula 3.50 12/28/16 20:00 98.1 79 31 122/59 96 12/28/16 20:00 79 12/28/16 18:00 80 12/28/16 16:00 81 12/28/16 16:00 98.7 81 17 138/69 97 12/28/16 15:00 90 27 154/74 96 12/28/16 14:00 86 26 138/79 98 12/28/16 14:00 86 12/28/16 13:00 72 20 127/59 97 12/28/16 12:00 73 12/28/16 12:00 98.2 73 16 142/63 97 I/O 12/28/16 12/28/16 12/28/16 12/29/16 12/29/16 12/29/16 07:00 15:00 23:00 07:00 15:00 23:00 Intake Total 800 ml 1820 ml 0 ml Output Total 300 ml 1300 ml 400 ml Balance 500 ml 520 ml -400 ml Intake Oral 800 ml 1320 ml 0 ml IV Total 0 ml 0 ml 0 ml Tube Feeding 500 ml Output Urine Total 300 ml 1300 ml 400 ml # Bowel Movements 0 0 0 Physical Exam GENERAL: SKIN: Warm and dry. HEAD: Normocephalic. EYES: No scleral icterus. No injection or drainage. NECK: Supple, trachea midline. No JVD or lymphadenopathy. CARDIOVASCULAR: Regular rate and rhythm without murmurs, gallops, or rubs. RESPIRATORY: Breath sounds equal bilaterally. No accessory muscle use. GASTROINTESTINAL: Abdomen soft, non-tender, nondistended. MUSCULOSKELETAL: No cyanosis, or edema. BACK: Nontender without obvious deformity. No CVA tenderness. Laboratory Laboratory Tests Test 12/28/16 12/28/16 12/29/16 12:20 20:16 03:43 Total Creatine Kinase 215 U/L 197 U/L Creatine Kinase MB 7.3 NG/ML 6.2 NG/ML Troponin I 0.16 NG/ML 0.06 NG/ML White Blood Count 15.0 TH/MM3 Red Blood Count 4.23 MIL/MM3 Hemoglobin 13.2 GM/DL Hematocrit 39.8 % Mean Corpuscular Volume 94.1 FL Mean Corpuscular Hemoglobin 31.1 PG Mean Corpuscular Hemoglobin 33.1 % Concent Red Cell Distribution Width 13.1 % Platelet Count 185 TH/MM3 Mean Platelet Volume 7.9 FL Neutrophils (%) (Auto) 91.9 % Lymphocytes (%) (Auto) 3.8 % Monocytes (%) (Auto) 4.3 % Eosinophils (%) (Auto) 0.0 % Basophils (%) (Auto) 0.0 % Neutrophils # (Auto) 13.8 TH/MM3 Lymphocytes # (Auto) 0.6 TH/MM3 Monocytes # (Auto) 0.6 TH/MM3 Eosinophils # (Auto) 0.0 TH/MM3 Basophils # (Auto) 0.0 TH/MM3 CBC Comment DIFF FINAL Differential Comment Sodium Level 138 MEQ/L Potassium Level 4.0 MEQ/L Chloride Level 100 MEQ/L Carbon Dioxide Level 32.3 MEQ/L Anion Gap 6 MEQ/L Blood Urea Nitrogen 16 MG/DL Creatinine 0.65 MG/DL Estimat Glomerular Filtration 132 ML/MIN Rate Random Glucose 161 MG/DL Calcium Level 8.9 MG/DL Total Bilirubin 0.3 MG/DL Aspartate Amino Transf 26 U/L (AST/SGOT) Alanine Aminotransferase 46 U/L (ALT/SGPT) Alkaline Phosphatase 115 U/L Total Protein 6.6 GM/DL Albumin 3.1 GM/DL Imaging Last Impressions Myocardial Perfusion Scan Nuc Med 12/29/16 0000 Signed Impressions: Service Date/Time: Thursday, December 29, 2016 09:42 - CONCLUSION: 1. Unremarkable myocardial perfusion scan.8 RISK CATEGORY: Low risk, less than 1%% annual mortality Dc Myers MD Chest X-Ray 12/28/16 0432 Signed Impressions: Service Date/Time: Wednesday, December 28, 2016 04:56 - CONCLUSION: No acute cardiopulmonary disease. Fabricio May MD Assessment and Plan Problem List: (1) Elevated troponin I level (2) COPD exacerbation Assessment and Plan elevated troponin is likely demand mediated. lexiscan normal perfusion will sign off call with further questions Jeremie Roque MD December 29, 2016 11:51
--- NOTE | 2016-12-29 15:15 | EKG ---
Date Performed: 12/28/2016 Time Performed: 04:31:17 PTAGE: 46 years EKG: Sinus rhythm WITH MARKED SINUS ARRHYTHMIA WITH SHORT ID INTERVAL INCOMPLETE RIGHT BUNDLE BRANCH BLOCK BORDERLINE ECG Compared to prior tracing no significant change PREVIOUS TRACING 05/01/2014 20.04.24 DOCTOR: Saravanan Newton Interpretating Date/Time 12/29/2016 15:14:42
[2016-12-30] VITALS (14 sets, daily range): BP systolic 103–140; BP diastolic 56–61; PULSE 51–77; RESP 12–20; TEMP 97.7–98.4; O2SAT 90–97
[2016-12-30] MEDS: CHLORHEXIDINE GLUCONATE 2 % 1 PACK (2 CLOTHS)(taper/protocol) TOPICAL SCH (04:00)
[2016-12-30] MEDS: RESP: ALBUTEROL 2.5 MG/IPRATROPIUM 0.5 MG NEB (PRN) NEB (04:40)
[2016-12-30 05:36] LABS: AUTOMATED NEUTROPHIL # 13.9 TH/MM3 (1.8-7.7); BASOPHIL % 0.1 % (0.0-2.0); HEMATOCRIT 38.9 % (39.0-51.0); HEMO FLAGS DIFF FINAL; LYMPH % 4.2 % (9.0-44.0); LYMPHOCYTE # 0.6 TH/MM3 (1.0-4.8); MEAN CELL VOLUME 94.8 FL (80.0-100.0); MEAN CORPUSCULAR HEMOGLOBIN 31.3 PG (27.0-34.0); MONO % 6.8 % (0.0-8.0); NEUT % 88.9 % (16.0-70.0); PLATELET COUNT 208 TH/MM3 (150-450); RED BLOOD COUNT 4.11 MIL/MM3 (4.50-5.90); RED CELL DISTRIBUTION WIDTH 13.5 % (11.6-17.2); WHITE BLOOD COUNT 15.6 TH/MM3 (4.0-11.0)
[2016-12-30] MEDS: HEPARIN SODIUM - SQ 10,000 UNITS/ML VIAL SQ SCH ×3 (05:53→21:35)
[2016-12-30] MEDS: methylPREDNISolone SOD SUCC 40 MG/1 ML VIAL IV PUSH SCH ×3 (05:53→21:35)
[2016-12-30] MEDS: LEVOFLOXACIN 750 MG PREMIX INJ 150 ML IV SCH (05:53)
[2016-12-30 05:58] LABS: BICARBONATE 36.1 MEQ/L (21.0-32.0); POTASSIUM 4.4 MEQ/L (3.5-5.1)
[2016-12-30] MEDS: RESP: ALBUTEROL 2.5 MG/IPRATROPIUM 0.5 MG NEB (SCH) NEB ×4 (08:39→20:15)
[2016-12-30] MEDS: SODIUM CHLORIDE 0.9% FLUSH 10 ML FLUSH IV FLUSH SCH ×2 (08:54→19:31)
[2016-12-30] MEDS: BUDESONIDE-FORMOTEROL 160/4.5 MCG INHALER INH SCH ×2 (08:54→21:00)
[2016-12-30] MEDS: guaiFENesin E.R. 600 MG TAB PO SCH ×2 (08:54→19:31)
[2016-12-30] MEDS: ASPIRIN EC 325 MG TABEC PO SCH (08:54)
--- NOTE | 2016-12-30 09:27 | HHI.PR ---
Subjective Remarks Follow up COPD exacerbation. Patient feels that his dyspnea is improving. Still wheezing. Still coughing, minimally productive. He does have some neck and back pain. Objective Vitals Vital Signs Date Time Temp Pulse Resp B/P Pulse Ox O2 Delivery O2 Flow Rate FiO2 12/30/16 08:39 94 21 12/30/16 06:00 53 12/30/16 04:00 57 12/30/16 04:00 97.7 57 16 104/58 92 12/30/16 02:00 52 12/30/16 00:00 98.2 62 20 131/60 91 12/30/16 00:00 62 12/29/16 22:00 68 12/29/16 20:14 93 12/29/16 20:00 98.1 72 20 138/65 92 12/29/16 20:00 72 12/29/16 18:00 80 12/29/16 16:00 64 12/29/16 16:00 98.4 64 14 103/53 95 12/29/16 15:00 68 14 100/45 93 12/29/16 14:00 74 13 93 12/29/16 14:00 74 12/29/16 13:00 90 23 110/56 95 12/29/16 12:00 75 12/29/16 12:00 98.3 72 18 123/62 92 12/29/16 11:24 96 I/O 12/29/16 12/29/16 12/29/16 12/30/16 12/30/16 12/30/16 07:00 15:00 23:00 07:00 15:00 23:00 Intake Total 0 ml 760 ml 210 ml 200 ml Output Total 400 ml 300 ml 500 ml 600 ml Balance -400 ml 460 ml -290 ml -400 ml Intake Oral 0 ml 600 ml 200 ml 200 ml IV Total 0 ml 160 ml 10 ml Output Urine Total 400 ml 300 ml 500 ml 600 ml # Voids 2 2 # Bowel Movements 0 0 0 0 Result Diagram: 12/30/16 0436 12/30/16 0436 Imaging Last Impressions Myocardial Perfusion Scan Nuc Med 12/29/16 0000 Signed Impressions: Service Date/Time: Thursday, December 29, 2016 09:42 - CONCLUSION: 1. Unremarkable myocardial perfusion scan.8 RISK CATEGORY: Low risk, less than 1%% annual mortality Dc Myers MD Chest X-Ray 12/28/16 0432 Signed Impressions: Service Date/Time: Wednesday, December 28, 2016 04:56 - CONCLUSION: No acute cardiopulmonary disease. Fabricio May MD Objective Remarks General: No acute distress. Heart: Regular rate and rhythm. No murmur. Lungs: Diffuse wheeze. Breathing is nonlabored. Abdomen: Soft, nontender, nondistended. Extremities: No lower extremity edema. Psych: Alert and oriented. Procedures None Urinary Catheter: No Vascular Central Line Catheter: No A/P Problem List: (1) COPD exacerbation ICD Code: J44.1 Status: Acute (2) Acute respiratory failure ICD Code: J96.00 Status: Acute (3) Leukocytosis ICD Code: D72.829 Status: Acute (4) Elevated troponin I level ICD Code: R74.8 Status: Acute (5) Sepsis ICD Code: A41.9 Status: Acute Assessment and Plan 1. COPD exacerbation: Continue bronchodilators, supplemental oxygen, antibiotics. Taper steroids. 2. Acute respiratory failure secondary to COPD exacerbation: No longer requiring BiPAP. Appreciate pulmonology recommendations. 3. Elevated troponin: Appreciate cardiology recommendations. Nuclear stress test is negative. Cardiology has signed off. 4. DVT prophylaxis: Heparin. Discharge Planning Transfer to medical/surgical floor with telemetry when a bed is available. Possible discharge home tomorrow if clinically improved. Rosas Wheeler MD December 30, 2016 09:26
[2016-12-30] MEDS: ACETAMINOPHEN/HYDROcodone 325 MG/10 MG TAB PO PRN (10:39)
--- NOTE | 2016-12-30 16:25 | HHI.PR ---
Subjective Remarks ALERT\ LESS SOB STILL WITH CONGESTION AND WHEEZING Objective Vital Signs Date Time Temp Pulse Resp B/P Pulse Ox O2 Delivery O2 Flow Rate FiO2 12/30/16 16:00 69 12/30/16 14:00 64 12/30/16 12:00 63 12/30/16 10:00 57 12/30/16 08:39 94 21 12/30/16 08:00 60 12/30/16 06:00 53 12/30/16 04:00 57 12/30/16 04:00 97.7 57 16 104/58 92 12/30/16 02:00 52 12/30/16 00:00 98.2 62 20 131/60 91 12/30/16 00:00 62 12/29/16 22:00 68 12/29/16 20:14 93 12/29/16 20:00 98.1 72 20 138/65 92 12/29/16 20:00 72 12/29/16 18:00 80 I/O 12/29/16 12/29/16 12/29/16 12/30/16 12/30/16 12/30/16 07:00 15:00 23:00 07:00 15:00 23:00 Intake Total 0 ml 760 ml 210 ml 200 ml Output Total 400 ml 300 ml 500 ml 600 ml Balance -400 ml 460 ml -290 ml -400 ml Intake Oral 0 ml 600 ml 200 ml 200 ml IV Total 0 ml 160 ml 10 ml Output Urine Total 400 ml 300 ml 500 ml 600 ml # Voids 2 2 # Bowel Movements 0 0 0 0 Result Diagram: 12/30/16 0436 12/30/16 0436 Objective Remarks GENERAL: SKIN: Warm and dry. HEAD: Atraumatic. Normocephalic. EYES: Pupils equal and round. No scleral icterus. No injection or drainage. ENT: No nasal bleeding or discharge. Mucous membranes pink and moist. NECK: Trachea midline. No JVD. CARDIOVASCULAR: Regular rate and rhythm. RESPIRATORY: No accessory muscle use. BILATERAL WHEEZE to auscultation. Breath sounds equal bilaterally. GASTROINTESTINAL: Abdomen soft, non-tender, nondistended. Hepatic and splenic margins not palpable. MUSCULOSKELETAL: Extremities without clubbing, cyanosis, or edema. No obvious deformities. NEUROLOGICAL: Awake and alert. No obvious cranial nerve deficits. Motor grossly within normal limits. Five out of 5 muscle strength in the arms and legs. Normal speech. PSYCHIATRIC: Appropriate mood and affect; insight and judgment normal. Assessment and Plan Assessment and Plan COPD EXACERBATION PLAN O2 NEEDED ANTIBIOTICS BRONCHODILATOR THERAPY INCREASE ACTIVITY Amy Reyes MD December 30, 2016 16:25
[2016-12-30] MEDS: ACETAMINOPHEN/HYDROcodone 325 MG/5 MG TAB PO PRN (19:31)
[2016-12-30] MEDS: BENZONATATE 100 MG CAP PO PRN (21:36)
[2016-12-31] VITALS (8 sets, daily range): BP systolic 118–143; BP diastolic 61–77; PULSE 49–75; RESP 13–20; TEMP 96.4–98.1; O2SAT 89–94
[2016-12-31] MEDS: CHLORHEXIDINE GLUCONATE 2 % 1 PACK (2 CLOTHS)(taper/protocol) TOPICAL SCH (04:00)
[2016-12-31] MEDS: HEPARIN SODIUM - SQ 10,000 UNITS/ML VIAL SQ SCH (04:33)
[2016-12-31] MEDS: LEVOFLOXACIN 750 MG PREMIX INJ 150 ML IV SCH (04:33)
[2016-12-31] MEDS: methylPREDNISolone SOD SUCC 40 MG/1 ML VIAL IV PUSH SCH (04:33)
[2016-12-31] MEDS: RESP: ALBUTEROL 2.5 MG/IPRATROPIUM 0.5 MG NEB (SCH) NEB ×2 (06:39→12:04)
[2016-12-31 06:56] LABS: AUTOMATED NEUTROPHIL # 10.7 TH/MM3 (1.8-7.7); BASOPHIL % 0.1 % (0.0-2.0); HEMATOCRIT 38.7 % (39.0-51.0); LYMPHOCYTE # 0.7 TH/MM3 (1.0-4.8); MEAN CELL VOLUME 94.4 FL (80.0-100.0); MEAN CORPUSCULAR HEMOGLOBIN 32.5 PG (27.0-34.0); MEAN CORPUSCULAR HGB CONC 34.5 % (32.0-36.0); MONO % 7.2 % (0.0-8.0); NEUT % 86.7 % (16.0-70.0); PLATELET COUNT 224 TH/MM3 (150-450); RED CELL DISTRIBUTION WIDTH 13.2 % (11.6-17.2); WHITE BLOOD COUNT 12.3 TH/MM3 (4.0-11.0)
[2016-12-31 07:10] LABS: HEMO FLAGS AUTO DIFF
[2016-12-31] MEDS: ASPIRIN EC 325 MG TABEC PO SCH (08:37)
[2016-12-31] MEDS: SODIUM CHLORIDE 0.9% FLUSH 10 ML FLUSH IV FLUSH SCH (08:37)
[2016-12-31] MEDS: guaiFENesin E.R. 600 MG TAB PO SCH (08:37)
--- NOTE | 2016-12-31 08:49 | HHI.PR ---
Subjective Remarks Follow up COPD exacerbation. The patient states that he feels good today. Still with occasional cough, which does cause some chest discomfort. He states that these are improving. No shortness of breath at this time. He would like to go home. Objective Vitals Vital Signs Date Time Temp Pulse Resp B/P Pulse Ox O2 Delivery O2 Flow Rate FiO2 12/31/16 06:00 53 12/31/16 04:00 97.3 49 14 118/65 89 12/31/16 04:00 49 12/31/16 02:00 51 12/31/16 00:00 96.4 52 13 129/61 91 12/31/16 00:00 52 12/30/16 22:00 75 12/30/16 20:31 20 12/30/16 20:16 97 21 12/30/16 20:00 55 12/30/16 20:00 97.8 55 12 128/59 90 12/30/16 18:00 77 12/30/16 16:00 98.4 67 18 140/60 94 12/30/16 16:00 69 12/30/16 14:00 64 12/30/16 12:00 63 12/30/16 12:00 98.3 65 18 125/61 93 12/30/16 10:00 57 I/O 12/30/16 12/30/16 12/30/16 12/31/16 12/31/16 12/31/16 07:00 15:00 23:00 07:00 15:00 23:00 Intake Total 200 ml 122 ml 360 ml 600 ml Output Total 600 ml 750 ml 650 ml 700 ml Balance -400 ml -628 ml -290 ml -100 ml Intake Oral 200 ml 360 ml 400 ml IV Total 122 ml 200 ml Output Urine Total 600 ml 750 ml 650 ml 700 ml Stool Total 0 ml # Voids 2 # Bowel Movements 0 Result Diagram: 12/31/16 0538 12/30/16 0436 Imaging Last Impressions Myocardial Perfusion Scan Nuc Med 12/29/16 0000 Signed Impressions: Service Date/Time: Thursday, December 29, 2016 09:42 - CONCLUSION: 1. Unremarkable myocardial perfusion scan.8 RISK CATEGORY: Low risk, less than 1%% annual mortality Dc Myers MD Chest X-Ray 12/28/16 0432 Signed Impressions: Service Date/Time: Wednesday, December 28, 2016 04:56 - CONCLUSION: No acute cardiopulmonary disease. Fabricio May MD Objective Remarks General: No acute distress. Heart: Regular rate and rhythm. No murmur. Lungs: Wheezing bilaterally. Breathing is nonlabored. Abdomen: Soft, nontender, nondistended. Extremities: No lower extremity edema. Psych: Alert and oriented. Procedures None Urinary Catheter: No Vascular Central Line Catheter: No A/P Problem List: (1) COPD exacerbation ICD Code: J44.1 Status: Acute (2) Acute respiratory failure ICD Code: J96.00 Status: Resolved (3) Leukocytosis ICD Code: D72.829 Status: Acute (4) Elevated troponin I level ICD Code: R74.8 Status: Acute (5) Sepsis ICD Code: A41.9 Status: Acute Assessment and Plan 1. COPD exacerbation: Continue bronchodilators, supplemental oxygen, antibiotics. Taper steroids. 2. Acute respiratory failure secondary to COPD exacerbation: Resolved. No longer requiring BiPAP. Appreciate pulmonology recommendations. 3. Elevated troponin: Appreciate cardiology recommendations. Nuclear stress test is negative. Cardiology has signed off. 4. DVT prophylaxis: Heparin. Discharge Planning Plan for discharge home pending results of home oxygen walk test. Rosas Wheeler MD December 31, 2016 08:49
[2016-12-31] MEDS ORDERED: ALBU1.25 NEB (08:53)
[2016-12-31] MEDS ORDERED: VENTAER INH (08:53)
[2016-12-31] MEDS ORDERED: LEVO750T3 PO (08:53)
[2016-12-31] MEDS ORDERED: BENZ100 PO (08:53)
[2016-12-31] MEDS ORDERED: SYMB160A INH (08:53)
[2016-12-31] MEDS ORDERED: PRED5PAK2 PO (08:53)
--- NOTE | 2016-12-31 08:53 | HHI.DCPOC ---
Discharge Care Plan Diagnosis: (1) Leukocytosis (2) COPD exacerbation (3) Elevated troponin I level (4) Sepsis (5) Acute respiratory failure Goals to Promote Your Health * To prevent worsening of your condition and complications * To maintain your health at the optimal level Directions to Meet Your Goals Take your medications as prescribed Follow your dietary instruction Follow activity as directed Keep your appointments as scheduled Take your immunizations and boosters as scheduled If your symptoms worsen call your PCP, if no PCP go to Urgent Care Center or Emergency Room Smoking is Dangerous to Your Health. Avoid second hand smoke Call the 24-hour hour crisis hotline for domestic abuse at Rosas Wheeler MD December 31, 2016 08:53
[2016-12-31 09:06] LABS: BANDS 10 % (0-6); PLATELET ESTIMATE SMEAR NORMAL (NORMAL); PLATELET MORPHOLOGY NORMAL (NORMAL); POLYS (SEG NEUTROPHILS) 71 % (16-70); WBC DIFF SAMPLE 100
[2016-12-31 09:07] LABS: SCAN/DIFF FINAL DIFF MANUAL
[2016-12-31] MEDS: ACETAMINOPHEN/HYDROcodone 325 MG/10 MG TAB PO PRN (10:18)
--- NOTE | 2016-12-31 14:41 | HHI.DS ---
Discharge Summary Admission Date December 28, 2016 at 05:40 Discharge Date: December 31, 2016 Admitting Diagnosis copd exacerbation (1) COPD exacerbation ICD Code: J44.1 (2) Acute respiratory failure ICD Code: J96.00 (3) Leukocytosis ICD Code: D72.829 (4) Elevated troponin I level ICD Code: R74.8 (5) Sepsis ICD Code: A41.9 Procedures None Brief History - From Admission The patient is a 46-year-old male who presented to the ER complaining of worsening shortness of breath and wheezing. He states that his symptoms have worsened significantly over the past week. He received Solu-Medrol and 3 nebulizer treatments in route to the hospital. He was also placed on BiPAP. He is feeling better after receiving those treatments, but still feels short of breath and still has significant wheezing. He denies chest pain. Does report headache. No nausea, vomiting, diarrhea, constipation. CBC/BMP: 12/31/16 0538 12/30/16 0436 Significant Findings Laboratory Tests Test 12/28/16 12/29/16 12/30/16 12/31/16 20:16 03:43 04:36 05:38 Creatine Kinase MB 6.2 NG/ML (0.5-3.6) Troponin I 0.06 NG/ML (0.02-0.05) White Blood Count 15.0 TH/MM3 15.6 TH/MM3 12.3 TH/MM3 (4.0-11.0) (4.0-11.0) (4.0-11.0) Red Blood Count 4.23 MIL/MM3 4.11 MIL/MM3 4.10 MIL/MM3 (4.50-5.90) (4.50-5.90) (4.50-5.90) Neutrophils (%) (Auto) 91.9 % 88.9 % 86.7 % (16.0-70.0) (16.0-70.0) (16.0-70.0) Lymphocytes (%) (Auto) 3.8 % 4.2 % 6.0 % (9.0-44.0) (9.0-44.0) (9.0-44.0) Neutrophils # (Auto) 13.8 TH/MM3 13.9 TH/MM3 10.7 TH/MM3 (1.8-7.7) (1.8-7.7) (1.8-7.7) Lymphocytes # (Auto) 0.6 TH/MM3 0.6 TH/MM3 0.7 TH/MM3 (1.0-4.8) (1.0-4.8) (1.0-4.8) Carbon Dioxide Level 32.3 MEQ/L 36.1 MEQ/L (21.0-32.0) (21.0-32.0) Random Glucose 161 MG/DL 162 MG/DL (74-106) (74-106) Albumin 3.1 GM/DL (3.4-5.0) Hemoglobin 12.8 GM/DL (13.0-17.0) Hematocrit 38.9 % 38.7 % (39.0-51.0) (39.0-51.0) Monocytes # (Auto) 1.1 TH/MM3 (0-0.9) Blood Urea Nitrogen 26 MG/DL (7-18) Neutrophils % (Manual) 71 % (16-70) Band Neutrophils % 10 % (0-6) Monocytes % 9 % (0-8) Neutrophils # (Manual) 10.0 TH/MM3 (1.8-7.7) Imaging Last Impressions Myocardial Perfusion Scan Nuc Med 12/29/16 0000 Signed Impressions: Service Date/Time: Thursday, December 29, 2016 09:42 - CONCLUSION: 1. Unremarkable myocardial perfusion scan.8 RISK CATEGORY: Low risk, less than 1%% annual mortality Dc Myers MD Chest X-Ray 12/28/16 0432 Signed Impressions: Service Date/Time: Wednesday, December 28, 2016 04:56 - CONCLUSION: No acute cardiopulmonary disease. Fabricio May MD PE at Discharge General: No acute distress. Heart: Regular rate and rhythm. No murmur. Lungs: Wheezing bilaterally. Breathing is nonlabored. Abdomen: Soft, nontender, nondistended. Extremities: No lower extremity edema. Psych: Alert and oriented. Hospital Course The patient was admitted for management of COPD exacerbation. Cardiology was consulted regarding elevated troponin. Nuclear stress test was negative. Pulmonology was consulted and recommended continuing steroids, bronchodilators, and supplemental oxygen. The patient improved clinically throughout the hospitalization. Steroids were tapered. He was weaned off oxygen. Respiratory therapy home oxygen walk test showed 91% oxygen saturation with ambulation on room air. The patient was felt to be stable for discharge home. Pt Condition on Discharge: Stable Discharge Disposition: Discharge Home Discharge Time: > 30 minutes Discharge Instructions DIET: Follow Instructions for: As Tolerated, No Restrictions Activities you can perform: Regular-No Restrictions Follow up Referrals: PCP Follow-up - 1 Week Pulmonology - 2 Weeks with Amy Reyes MD New Medications: Levofloxacin (Levofloxacin) 750 Mg Tablet 750 MG PO DAILY Infection #2 TAB Prednisone (48) 5 mg tab Dose Pack (Prednisone (48) 5 mg tab Dose Pack) 5 Mg Dspk 5 MG PO DIRECTED Inflammation #1 Ref 0 DSPK Benzonatate (Tessalon Perles) 100 Mg Cap 100 MG PO TID PRN COUGH #30 Ref 0 CAP Budesonide-Formoterol Inh (Symbicort Inh) 160-4.5 Mcg/Act Aero 2 PUFF INH Q12HR COPD #1 Ref 0 INHALER Continued Medications: Albuterol 18 GM Inh (Ventolin Hfa 18 GM Inh) 90 Mcg/Act Aer 2 PUFF INH Q4-6H PRN SHORTNESS OF BREATH #1 Ref 0 INHALER (This prescription has been renewed) Albuterol Neb (Albuterol Neb) 1.25 Mg/3 Ml Neb 1.25 MG NEB Q6HR NEB PRN SHORTNESS OF BREATH #50 Ref 0 NEBULE (This prescription has been renewed) Rosas Wheeler MD December 31, 2016 14:41
== END 2016-12-31 13:18 | disposition home or self-care (01) | DRG 190 ==
LOC: NEPC 04:22 → NEDA 05:40 → HIME 09:15 → HOCA 12-31 11:30
PROVIDERS: ADMIT Family Medicine; ATTEND Family Medicine
DX: J44.1 Chronic obstructive pulmonary disease with (acute) exacerbation (principal); J96.01 Acute respiratory failure with hypoxia; F41.9 Anxiety disorder, unspecified; F17.210 Nicotine dependence, cigarettes, uncomplicated; R74.8 Abnormal levels of other serum enzymes
CPT/HCPCS: 36600; 71010; 78452; 80048; 80053; 82550; 82552; 82805; 83735; 83880; 84484; 85007; 85025; 85027; 85610; 85730; 87641; 87804; 90732; 93005; 93017; 94002; 94620; 94640; 94664; 99291; A9502; J1644; J1956; J2785; J2920

== ENCOUNTER 2017-04-26 07:10 | Emergency (ER) | payer SELFPAY ==
[~2017-04-26] VITALS: Ht 185.4 cm; Wt 81.0 kg
[~2017-04-26 07:10] MED LIST: ALBU1.25 NEB; BENZ100 PO; LEVO750T3 PO; PRED5PAK2 PO; SYMB160A INH; VENTAER INH
[2017-04-26 07:15] VITALS: BP 134/67; PULSE 71; RESP 16; TEMP 98.5; O2SAT 97
--- NOTE | 2017-04-26 07:37 | PD ---
HPI Chief Complaint: Fall Time Seen by Provider: 07:30 Travel History International Travel<30 days: No Contact w/Intl Traveler<30days: No Traveled to known affect area: No History of Present Illness HPI 47yo M with no significant PMH presents to the ED with c/o right wrist pain s/p fall about 1.5 hours ago. Pt took a step down the stair and missed and fell on right extended wrist. Pt does have an abrasion in right leg but denies any pain. Pt denies any LOC, chest pain, sob, n/v, abdominal pain, dizziness, focal weakness or numbness. Does not remember last tetanus. PFSH Past Medical History Medical History: Denies Significant Hx Anxiety: No Depression: No Cancer: No COPD: Yes Diminished Hearing: Yes ([place]) Endocrine: No Genitourinary: No Immune Disorder: No Musculoskeletal: Yes (CHRONIC NECK AND BACK PAIN) Psychiatric: No Reproductive: No Respiratory: Yes Sleep Apnea: Yes Past Surgical History Neurologic Surgery: Yes (RHIZOTOMY) Tonsillectomy: Yes Social History Alcohol Use: Yes (WEEKENDS) Tobacco Use: Yes (1PPD) Substance Use: Yes (Years ago) Allergies-Medications (Allergen,Severity, Reaction): Coded Allergies: tramadol (Unverified Adverse Reaction, Mild, HIVES, 04/26/17) Reported Meds & Prescriptions Reported Meds & Active Scripts Active Percocet (Oxycodone-Acetaminophen) 5-325 mg Tab 1 Tab PO Q6H PRN Review of Systems Except as stated in HPI: all other systems reviewed are Neg Physical Exam Narrative GENERAL: 47yo M in moderate distress. SKIN: Focused skin assessment warm/dry. HEAD: Atraumatic. Normocephalic. EYES: Pupils equal and round. No scleral icterus. No injection or drainage. CARDIOVASCULAR: Regular rate and rhythm. No murmur appreciated. RESPIRATORY: No accessory muscle use. Clear to auscultation. Breath sounds equal bilaterally. GASTROINTESTINAL: Abdomen soft, non-tender, nondistended. No rebound tenderness or guarding. MUSCULOSKELETAL: +Edema and ttp right wrist. Mild swelling in hand with ttp scaphoid. Sensation is intact in all digits. Decreased ROM in digits secondary to pain but able to flex and extend all digits. No open wounds. Radial pulse 2+ . RLE: Abrasion right tibia. No ttp. FROM in right hip and knee. Sensation intact. NEUROLOGICAL: Awake and alert. No obvious cranial nerve deficits. Motor grossly within normal limits. Normal speech. PSYCHIATRIC: Appropriate mood and affect; insight and judgment normal. Data Data Last Documented VS Vital Signs Date Time Temp Pulse Resp B/P (MAP) Pulse Ox O2 Delivery O2 Flow Rate FiO2 04/26/17 08:29 99 18 134/91 (105) 98 Room Air 04/26/17 07:15 98.5 Orders Orders Wrist, Limited (Ap&Lat) (04/26/17 ) Hand, Limited (2vws) (04/26/17 ) Tetanus/Diphtheria Tox Adult (Tetanus/Di (04/26/17 07:45) Morphine Inj (Morphine Inj) (04/26/17 07:45) Complete Blood Count With Diff (04/26/17 07:35) Basic Metabolic Panel (Bmp) (04/26/17 07:35) Prothrombin Time / Inr (Pt) (04/26/17 07:35) Act Partial Throm Time (Ptt) (04/26/17 07:35) Ct Wrist W/O Contrast (04/26/17 ) Ct Hand W/O Contrast (04/26/17 ) Splint Or Brace Apply/Monitor (04/26/17 09:03) Labs Laboratory Tests Test 04/26/17 07:40 White Blood Count 14.6 TH/MM3 Red Blood Count 4.41 MIL/MM3 Hemoglobin 13.7 GM/DL Hematocrit 40.3 % Mean Corpuscular Volume 91.4 FL Mean Corpuscular Hemoglobin 31.0 PG Mean Corpuscular Hemoglobin Concent 33.9 % Red Cell Distribution Width 12.8 % Platelet Count 217 TH/MM3 Mean Platelet Volume 7.1 FL Neutrophils (%) (Auto) 78.8 % Lymphocytes (%) (Auto) 10.0 % Monocytes (%) (Auto) 7.0 % Eosinophils (%) (Auto) 1.7 % Basophils (%) (Auto) 2.5 % Neutrophils # (Auto) 11.5 TH/MM3 Lymphocytes # (Auto) 1.5 TH/MM3 Monocytes # (Auto) 1.0 TH/MM3 Eosinophils # (Auto) 0.2 TH/MM3 Basophils # (Auto) 0.4 TH/MM3 CBC Comment DIFF FINAL Differential Comment Prothrombin Time 10.7 SEC Prothromb Time International Ratio 1.0 RATIO Activated Partial Thromboplast Time 27.0 SEC Blood Urea Nitrogen 9 MG/DL Creatinine 0.59 MG/DL Random Glucose 113 MG/DL Calcium Level 8.8 MG/DL Sodium Level 137 MEQ/L Potassium Level 3.9 MEQ/L Chloride Level 101 MEQ/L Carbon Dioxide Level 29.6 MEQ/L Anion Gap 6 MEQ/L Estimat Glomerular Filtration Rate 147 ML/MIN MDM Medical Decision Making Medical Screen Exam Complete: Yes Emergency Medical Condition: Yes Differential Diagnosis Fracture vs. dislocation Narrative Course 47yo M with right wrist and hand swelling and pain after landing on outstretched right hand from mechanical fall today. Labs reviewed, mild leukocytosis at 14.6. BMP unremarkable. Xray right hand showed fractured distal radius and navicular. Xray right wrist showed fracture of distal radius and scaphoid. I discussed case with hand surgeon Dr. Adams and she recommended CT right hand and wrist here. Also recommended splint and follow up with her. Pt was given morphine for pain here. Tetanus updated for the abrasion in right leg. Pt states he has taken percocet before with no adverse reactions. Pt will be discharged with it. Pt placed with thumb spica/sugar tong splint here and return precautions given. Neurovascular intact after splint placement. Diagnosis Primary Impression: Distal radius fracture, right Qualified Codes: S52.501A - Unspecified fracture of the lower end of right radius, initial encounter for closed fracture Referrals: Samreen Adams MD call for appointment Impacted fracture distal right radius and comminuted scaphoid fracture. Patient Instructions: General Instructions Departure Forms: Tests/Procedures Additional Instructions: Please follow up with Dr. Adams in 1-2 days. Return to the ED if symptoms worsen. Med/Other Pt SpecificInfo: Prescription(s) given Scripts Oxycodone-Acetaminophen (Percocet) 5-325 mg Tab 1 TAB PO Q6H Y for PAIN, #10 TAB 0 Refills Prov: Kaela Virgen 04/26/17 Disposition: 01 DISCHARGE HOME Condition: Stable Kaela Virgen DO Apr 26, 2017 07:37
[2017-04-26 07:44] LABS: AUTOMATED NEUTROPHIL # 11.5 TH/MM3 (1.8-7.7); BASOPHIL # 0.4 TH/MM3 (0-0.2); BASOPHIL % 2.5 % (0.0-2.0); EOSINOPHIL # 0.2 TH/MM3 (0-0.4); EOSINOPHIL % 1.7 % (0.0-4.0); HEMATOCRIT 40.3 % (39.0-51.0); LYMPHOCYTE # 1.5 TH/MM3 (1.0-4.8); MEAN CELL VOLUME 91.4 FL (80.0-100.0); MEAN CORPUSCULAR HGB CONC 33.9 % (32.0-36.0); NEUT % 78.8 % (16.0-70.0); PLATELET COUNT 217 TH/MM3 (150-450); RED BLOOD COUNT 4.41 MIL/MM3 (4.50-5.90); RED CELL DISTRIBUTION WIDTH 12.8 % (11.6-17.2); WHITE BLOOD COUNT 14.6 TH/MM3 (4.0-11.0)
[2017-04-26 07:45] LABS: HEMO FLAGS DIFF FINAL
[2017-04-26] MEDS ORDERED: TETANUS/DIPHTHERIA TOXOID ADULT 0.5 ML VIAL IM ONE (07:45)
[2017-04-26] MEDS ORDERED: MORPHINE SULFATE 8 MG/ML INJ IV PUSH ONE (07:45)
[2017-04-26 07:57] LABS: POTASSIUM 3.9 MEQ/L (3.5-5.1)
[2017-04-26 08:01] LABS: PROTHROMBIN TIME - PATIENT 10.7 SEC (9.8-11.6)
[2017-04-26 08:02] LABS: BICARBONATE 29.6 MEQ/L (21.0-32.0)
--- NOTE | 2017-04-26 08:11 | RADRPT ---
EXAM DATE/TIME: 04/26/2017 07:58 [facility] COMPARISON: CHEST SINGLE AP, December 28, 2016, 4:56. INDICATIONS : Fall down stairs, right wrist pain. MEDICAL HISTORY : None. SURGICAL HISTORY : None. ENCOUNTER: Initial ACUITY: 1 day PAIN SCORE: 10/10 LOCATION: Right wrist FINDINGS: The exam demonstrates an impacted fracture of the distal right radius. The examination also demonstrates a minimally displaced, comminuted fracture of the scaphoid. The remainder of the osseous structures are intact. CONCLUSION: 1. Fracture of the distal radius and scaphoid. Arian Jauregui MD on April 26, 2017 at 8:08 Board Certified Radiologist. This report was verified electronically.
--- NOTE | 2017-04-26 08:14 | RADRPT ---
EXAM DATE/TIME: 04/26/2017 07:58 [facility] COMPARISON: WRIST RIGHT LIMITED(AP & LAT), April 26, 2017, 7:58. INDICATIONS : Fall down stairs, right hand pain. MEDICAL HISTORY : None. SURGICAL HISTORY : None. ENCOUNTER: Initial ACUITY: 1 day PAIN SCORE: 10/10 LOCATION: Right hand FINDINGS: Distal radial fracture is identified. There is a fracture of the navicula at or near the neck nondisp laced. Major bony structures intact. CONCLUSION: Fractured distal radius and navicular. Ravindra Healy MD on April 26, 2017 at 8:10 Board Certified Radiologist. This report was verified electronically.
[2017-04-26 08:29] VITALS: BP 134/91; PULSE 99; RESP 18; O2SAT 98
--- NOTE | 2017-04-26 10:17 | RADRPT ---
EXAM DATE/TIME: 04/26/2017 09:43 [facility] COMPARISON: No previous studies available for comparison. INDICATIONS : Fell down steps. Right wrist pain. Abnormal xray. RADIATION DOSE: 15.87 CTDIvol (mGy) ; Combined studies MEDICAL HISTORY : None SURGICAL HISTORY : None. ENCOUNTER: Initial ACUITY: 1 day PAIN SCALE: 6/10 LOCATION: Right wrist TECHNIQUE: Volumetric scanning of the wrist was performed. Using automated exposure control and adjustment of t he mA and/or kV according to patient size, radiation dose was kept as low as reasonably achievable to obtain optimal diagnostic quality images. DICOM format image data is available electronically for review and comparison. FINDINGS: There is impacted fracture of the distal radius and extends into the radiocarpal joint. Alignment ac ross the radiocarpal joint is anatomic. The ulna is intact into the ulnar styloid. There is no fracture of the upper pole of the carpal navicular. Lunate is intact. 2 cysts are seen in the triquetrum. Alignment is anatomic CONCLUSION: Fracture distal radius and carpal navicular. Triquetral cyst without fracture. Lunate is intact. John Jauregui MD FACR on April 26, 2017 at 10:12 Board Certified Radiologist. This report was verified electronically.
[2017-04-26] MEDS ORDERED: PERC5TAB12 PO (10:18)
--- NOTE | 2017-04-26 10:19 | RADRPT ---
EXAM DATE/TIME: 04/26/2017 09:43 [facility] COMPARISON: No previous studies available for comparison. INDICATIONS : Fell down steps. Abnormal xray. Right hand pain. RADIATION DOSE: 15.87 CTDIvol (mGy) ; Combined studies MEDICAL HISTORY : None SURGICAL HISTORY : None. ENCOUNTER: Initial ACUITY: 1 day PAIN SCALE: 6/10 LOCATION: Right hand TECHNIQUE: Volumetric scanning of the hand was performed. Using automated exposure control and adjustment of th e mA and/or kV according to patient size, radiation dose was kept as low as reasonably achievable to obtain optimal diagnostic quality images. DICOM format image data is available electronically for re view and comparison. FINDINGS: BONES: No evidence of fracture. Alignment is within normal limits. JOINTS: No evidence of joint narrowing or effusion. SOFT TISSUES: Muscles, tendons, and neurovascular structures are grossly unremarkable. No evidence of mass, organiz ed fluid collection, or foreign body. CONCLUSION: Metacarpals and phalanges are intact. First MCPJ and CMP joint is normal.. John Jauregui MD FACR on April 26, 2017 at 10:16 Board Certified Radiologist. This report was verified electronically.
== END 2017-04-26 11:02 | disposition home or self-care (01) ==
LOC: PHED 07:10
DX: S52.501A Unspecified fracture of the lower end of right radius, initial encounter for closed fracture (principal); S62.001A Unspecified fracture of navicular [scaphoid] bone of right wrist, initial encounter for closed fracture; S80.811A Abrasion, right lower leg, initial encounter; D72.829 Elevated white blood cell count, unspecified; G47.30 Sleep apnea, unspecified; H91.90 Unspecified hearing loss, unspecified ear; F17.200 Nicotine dependence, unspecified, uncomplicated; W10.9XXA Fall (on) (from) unspecified stairs and steps, initial encounter; Z23 Encounter for immunization; Z87.09 Personal history of other diseases of the respiratory system; Z87.39 Personal history of other diseases of the musculoskeletal system and connective tissue
CPT/HCPCS: 29125; 73100; 73120; 73200; 80048; 85025; 85610; 85730; 90471; 90714; 96374; 99285; J2270; L3808

== ENCOUNTER 2017-05-01 10:53 | Emergency (ER) | payer SELFPAY ==
[~2017-05-01 10:53] MED LIST changes: -ALBU1.25 NEB; -BENZ100 PO; -LEVO750T3 PO; +PERC5TAB12 PO; -PRED5PAK2 PO; -SYMB160A INH; -VENTAER INH
[2017-05-01 11:03] VITALS: BP 124/79; PULSE 70; RESP 20; TEMP 97.9; O2SAT 96
[2017-05-01] MEDS ORDERED: PERC5TAB12 PO (11:54)
--- NOTE | 2017-05-01 11:59 | PD ---
HPI Chief Complaint: Musculoskeletal Complaint Time Seen by Provider: 11:42 Travel History International Travel<30 days: No Contact w/Intl Traveler<30days: No Traveled to known affect area: No History of Present Illness HPI 47-year-old male who sustained a right distal radius and scaphoid fracture on after falling onto an outstretched hand presents emergency department requesting additional pain medication. He reports he was to follow-up with specialist in 1-2 days but due to insurance purposes and his mandatory referral approval his follow-up appointment was pushed back until 05/03/17 therefore his original prescription for #10 Percocet has run out. Patient does not endorse worsening pain in the extremity. He denies numbness/tingling/weakness/change in color or sensation of the hand. He reports the pain has been constant since the fall and the previous medication helped. PFSH Past Medical History Anxiety: No Depression: No Cancer: No COPD: Yes Diminished Hearing: Yes ([place]) Endocrine: No Gastrointestinal Disorders: No Genitourinary: No Immune Disorder: No Implanted Vascular Access Dvce: No Musculoskeletal: Yes (CHRONIC NECK AND BACK PAIN) Psychiatric: No Reproductive: No Respiratory: Yes Sleep Apnea: Yes Past Surgical History Neurologic Surgery: Yes (RHIZOTOMY) Tonsillectomy: Yes Other Surgery: Yes Social History Alcohol Use: Yes (WEEKENDS) Tobacco Use: Yes (1PPD) Substance Use: Yes (Years ago) Allergies-Medications (Allergen,Severity, Reaction): Coded Allergies: tramadol (Unverified Adverse Reaction, Mild, HIVES, 05/01/17) Reported Meds & Prescriptions Reported Meds & Active Scripts Active Percocet (Oxycodone-Acetaminophen) 5-325 mg Tab 1 Tab PO Q6H PRN Review of Systems Except as stated in HPI: all other systems reviewed are Neg Physical Exam Narrative GENERAL: Well-nourished, well-developed patient. SKIN: Focused skin assessment warm/dry. NECK: Supple, trachea midline. No JVD or lymphadenopathy. CARDIOVASCULAR: Regular rate and rhythm without murmurs, gallops, or rubs. RESPIRATORY: Breath sounds equal bilaterally. No accessory muscle use. GASTROINTESTINAL: Abdomen soft, non-tender, nondistended. MUSCULOSKELETAL: No cyanosis, or edema. Right upper extremity: Sugar tong splint in place. Exposed fingers are warm, color within normal limits, brisk cap refill, normal sensation. Data Data Last Documented VS Vital Signs Date Time Temp Pulse Resp B/P (MAP) Pulse Ox O2 Delivery O2 Flow Rate FiO2 05/01/17 11:03 97.9 70 20 124/79 (94) 96 MDM Medical Decision Making Medical Screen Exam Complete: Yes Emergency Medical Condition: Yes Differential Diagnosis Right Distal radius fracture, right scaphoid fracture, pain related to fracture Narrative Course 47-year-old male who sustained a right distal radius and scaphoid fracture on after falling onto an outstretched hand presents emergency department requesting additional pain medication. He reports he was to follow-up with specialist in 1-2 days but due to insurance purposes and his mandatory referral approval his follow-up appointment was pushed back until 05/03/17 therefore his original prescription for #10 Percocet has run out. Patient does not endorse worsening pain in the extremity. He denies numbness/tingling/weakness/change in color or sensation of the hand. He reports the pain has been constant since the fall and the previous medication helped. Patient will be given a prescription of Percocet for the following 2 days. Return precautions discussed. Patient verbalizes understanding and agrees to plan. Diagnosis Primary Impression: Distal radius fracture, right Qualified Codes: S52.501D - Unspecified fracture of the lower end of right radius, subsequent encounter for closed fracture with routine healing Referrals: Samreen Adams MD Additional Instructions: Take the pain medication as prescribed. Keep her follow-up appointment with Dr. Adams. Ice and elevate the extremity. Return to emergency department if he developed new or worsening symptoms. Scripts Oxycodone-Acetaminophen (Percocet) 5-325 mg Tab 1 TAB PO Q6H Y for PAIN, #10 TAB 0 Refills Prov: Sharad Nelson MD 05/01/17 Disposition: 01 DISCHARGE HOME Condition: Stable Gwendolyn Donald May 01, 2017 11:59
== END 2017-05-01 12:10 | disposition home or self-care (01) ==
LOC: PHEFT 10:53
DX: S52.501D Unspecified fracture of the lower end of right radius, subsequent encounter for closed fracture with routine healing (principal); W19.XXXD Unspecified fall, subsequent encounter
CPT/HCPCS: 99283